=== PATIENT | male | born 1965 | race Caucasian/White ===

== ENCOUNTER 2018-01-28 06:28 | Observation (INO) | payer OTHER ==
[~2018-01-28] VITALS: Ht 177.8 cm; Wt 75.0 kg
[2018-01-28 06:32] VITALS: BP 166/91; PULSE 101; RESP 16; TEMP 98.3; O2SAT 99
[2018-01-28 06:55] LABS: AUTOMATED NEUTROPHIL # 6.8 TH/MM3 (1.8-7.7); BASOPHIL # 0.1 TH/MM3 (0-0.2); BASOPHIL % 1.3 % (0.0-2.0); EOSINOPHIL # 0.2 TH/MM3 (0-0.4); EOSINOPHIL % 2.3 % (0.0-4.0); HEMATOCRIT 44.9 % (39.0-51.0); HEMOGLOBIN 15.7 GM/DL (13.0-17.0); LYMPH % 25.4 % (9.0-44.0); LYMPHOCYTE # 2.6 TH/MM3 (1.0-4.8); MEAN CELL VOLUME 94.2 FL (80.0-100.0); MEAN CORPUSCULAR HEMOGLOBIN 32.9 PG (27.0-34.0); MEAN PLATELET VOLUME 7.1 FL (7.0-11.0); MONO % 5.1 % (0.0-8.0); MONOCYTE # 0.5 TH/MM3 (0-0.9); NEUT % 65.9 % (16.0-70.0); PLATELET COUNT 360 TH/MM3 (150-450); RED BLOOD COUNT 4.76 MIL/MM3 (4.50-5.90); WHITE BLOOD COUNT 10.3 TH/MM3 (4.0-11.0)
[2018-01-28 07:11] LABS: BICARBONATE 28.8 MEQ/L (21.0-32.0); BLOOD UREA NITROGEN 8 MG/DL (7-18); CALCIUM 8.8 MG/DL (8.5-10.1); CHLORIDE 104 MEQ/L (98-107); CREATININE 0.86 MG/DL (0.60-1.30); GLOMERULAR FILTRATION RATE 93 ML/MIN (>89); GLUCOSE,RANDOM 106 MG/DL (74-106); SODIUM (NA) 140 MEQ/L (136-145)
[2018-01-28 07:14] LABS: TROPONIN I LESS THAN 0.02 NG/ML (0.02-0.05)
--- NOTE | 2018-01-28 08:04 | RADRPT ---
EXAM DATE/TIME: 01/28/2018 07:50 [place] COMPARISON: No previous studies available for comparison. INDICATIONS : Chest pain. Patient complains of chest pressure. MEDICAL HISTORY : None. SURGICAL HISTORY : None. ENCOUNTER: Initial ACUITY: 2 days PAIN SCORE: 5/10 LOCATION: Bilateral chest FINDINGS: PA and lateral views of the chest demonstrate the lungs to be symmetrically aerated without evidence of mass, infiltrate or effusion. The cardiomediastinal contours are unremarkable. Osseous structure s are intact. CONCLUSION: 1. No acute cardiopulmonary disease. Terry Larose MD on January 28, 2018 at 8:01 Board Certified Radiologist. This report was verified electronically.
[2018-01-28 08:29] VITALS: BP 176/93; PULSE 83; RESP 16; O2SAT 99
--- NOTE | 2018-01-28 08:37 | PD ---
HPI Chief Complaint: Chest Pain Time Seen by Provider: 08:27 Travel History International Travel<30 days: No Contact w/Intl Traveler<30days: No Traveled to known affect area: No History of Present Illness HPI Patient is a 52-year-old male who comes in complaining of left-sided chest pain. He describes the pain as a pressure, and says it radiates down his left arm. He says it started this morning while he was driving to work. He says it has been coming and going since then. He denies any medical problems, but says he has not seen a primary care physician in a while. He is a smoker. He denies shortness of breath, nausea or vomiting. He has not taken anything for his pain. He does have family history of heart disease in his father and brother. Severity is mild to moderate. PFSH Past Medical History Medical History: Denies Significant Hx Diminished Hearing: No Tetanus Vaccination: Unknown Influenza Vaccination: No Past Surgical History Oral Surgery: Yes Social History Alcohol Use: Yes (2 beers a day) Tobacco Use: Yes Substance Use: No Allergies-Medications (Allergen,Severity, Reaction): Coded Allergies: No Known Allergies (Unverified , 01/28/18) Reported Meds & Prescriptions Reported Meds & Active Scripts Active No Active Prescriptions or Reported Medications Review of Systems Except as stated in HPI: all other systems reviewed are Neg General / Constitutional: No: Fever, Chills Eyes: No: Blurred Vision HENT: No: Headaches, Lightheadedness Cardiovascular: Positive: Chest Pain or Discomfort Respiratory: No: Shortness of Breath Gastrointestinal: No: Nausea, Vomiting Genitourinary: No: Dysuria Musculoskeletal: No: Myalgias, Edema Skin: No Rash, No Change in Pigmentation Neurologic: No: Weakness, Dizziness Physical Exam Narrative GENERAL: Awake and alert, no acute distress. SKIN: Focused skin assessment warm/dry. No wounds or signs of infection. HEAD: Atraumatic. Normocephalic. EYES: Pupils equal and round. No scleral icterus. Extraocular movements intact. NECK: Trachea midline. No JVD. CARDIOVASCULAR: Regular rate and rhythm. No murmur appreciated. RESPIRATORY: No accessory muscle use. Clear to auscultation. Breath sounds equal bilaterally. GASTROINTESTINAL: Abdomen soft, non-tender, nondistended. MUSCULOSKELETAL: No obvious deformities. No clubbing. No cyanosis. No edema. NEUROLOGICAL: Awake and alert. No obvious cranial nerve deficits. Motor grossly within normal limits. Normal speech. PSYCHIATRIC: Appropriate mood and affect; insight and judgment normal. Data Data Last Documented VS Vital Signs Date Time Temp Pulse Resp B/P (MAP) Pulse Ox O2 Delivery O2 Flow Rate FiO2 01/28/18 08:29 83 16 176/93 (120) 99 Room Air 01/28/18 06:32 98.3 Orders Orders Electrocardiogram (01/28/18 06:36) Complete Blood Count With Diff (01/28/18 06:36) Basic Metabolic Panel (Bmp) (01/28/18 06:36) Ckmb (Isoenzyme) Profile (01/28/18 06:36) Troponin I (01/28/18 06:36) Iv Access Insert/Monitor (01/28/18 06:36) Ecg Monitoring (01/28/18 06:36) Oxygen Administration (01/28/18 06:36) Oximetry (01/28/18 06:36) Chest, Pa & Lat (01/28/18 06:36) Admit Order (Ed Use Only) (01/28/18 ) Aspirin Chew (Aspirin Chew) (01/28/18 08:45) Labs Laboratory Tests Test 01/28/18 06:46 White Blood Count 10.3 TH/MM3 Red Blood Count 4.76 MIL/MM3 Hemoglobin 15.7 GM/DL Hematocrit 44.9 % Mean Corpuscular Volume 94.2 FL Mean Corpuscular Hemoglobin 32.9 PG Mean Corpuscular Hemoglobin Concent 35.0 % Red Cell Distribution Width 14.0 % Platelet Count 360 TH/MM3 Mean Platelet Volume 7.1 FL Neutrophils (%) (Auto) 65.9 % Lymphocytes (%) (Auto) 25.4 % Monocytes (%) (Auto) 5.1 % Eosinophils (%) (Auto) 2.3 % Basophils (%) (Auto) 1.3 % Neutrophils # (Auto) 6.8 TH/MM3 Lymphocytes # (Auto) 2.6 TH/MM3 Monocytes # (Auto) 0.5 TH/MM3 Eosinophils # (Auto) 0.2 TH/MM3 Basophils # (Auto) 0.1 TH/MM3 CBC Comment DIFF FINAL Differential Comment Blood Urea Nitrogen 8 MG/DL Creatinine 0.86 MG/DL Random Glucose 106 MG/DL Calcium Level 8.8 MG/DL Sodium Level 140 MEQ/L Potassium Level 3.9 MEQ/L Chloride Level 104 MEQ/L Carbon Dioxide Level 28.8 MEQ/L Anion Gap 7 MEQ/L Estimat Glomerular Filtration Rate 93 ML/MIN Total Creatine Kinase 75 U/L Troponin I LESS THAN 0.02 NG/ML MDM Medical Decision Making Medical Screen Exam Complete: Yes Emergency Medical Condition: Yes Interpretation(s) ECG shows normal sinus rhythm at 83, no ST elevation or depression, normal intervals Differential Diagnosis ACS versus an STEMI versus STEMI Narrative Course Patient is a 52-year-old male who comes in complaining of chest pain radiating down his left arm. Exam shows no acute abnormalities. IV established, labs sent. Patient connected to the court recording monitor. Given aspirin. Labs show no acute abnormalities, troponin is within normal limits. Chest x-ray shows no acute abnormalities. Based on risk factors, patient will be placed in chest pain center for further management. Last 24 hours Impressions Chest X-Ray 01/28/18 0636 Signed Impressions: Service Date/Time: Sunday, January 28, 2018 07:50 - CONCLUSION: 1. No acute cardiopulmonary disease. Terry Larose MD Diagnosis Primary Impression: Chest pain Qualified Codes: R07.9 - Chest pain, unspecified Admitting Information Admitting Physician Requests: Observation Scripts No Active Prescriptions or Reported Meds Teresa Douglas MD Jan 28, 2018 08:37
[2018-01-28] MEDS ORDERED: ASPIRIN 81 MG CHEW TAB CHEW ONE (08:45)
[2018-01-28 10:13] VITALS: BP 131/80; PULSE 76; RESP 16; O2SAT 97
--- NOTE | 2018-01-28 10:48 | HHI.HP ---
HPI Primary Care Physician No Primary Care Physician Chief Complaint Chest pain History of Present Illness This is a 52-year-old male presents to ED via private vehicle with a complaint of discomfort in his chest. States that he developed a sharp/throbbing discomfort in the center of his chest while driving to work the last a couple seconds. However it has recurred several more times since. No associated shortness of breath, nausea, or diaphoresis. States this is happened in the past. States 2 years ago it occurred and he went to [facility] and had labs and EKGs and was discharged. No stress testing. He cannot recall ever having a stress test or heart catheterization. Denies recent illness. Denies fevers or chills. He is found nothing to bring on the discomfort. There is family history of CAD. States his brother had an DC at age 49 and his father had late onset coronary disease in his 70s. Patient is a cigarette smoker. Review of Systems General: Patient denies fevers, chills, and recent travel. HEENT: Patient denies headache, sore throat, difficulty swallowing. Cardiovascular: Has the chest discomfort as mentioned above. Denies sensation of heart beating rapidly or irregularly. No syncope. Denies diaphoresis. Respiratory: Denies shortness of breath or inspirational chest discomfort. Denies coughing wheezing or hemoptysis. GI: Patient denies nausea, vomiting, diarrhea, abdominal pain, bloody stools. Musculoskeletal: Patient denies joint pain or edema. Denies calf pain or edema. Neurovascular: Patient denies numbness, tingling, weakness in extremities. Denies headache. Endocrine: Denies polyuria and polydipsia. Hematologic: Denies easy bruising. Skin: Denies rash or itching. Past Family Social History Allergies: Coded Allergies: No Known Allergies (Unverified , 01/28/18) Past Medical History Tobacco abuse. Denies hypertension, hyperlipidemia, diabetes, and known CAD. Past Surgical History Oral surgery. Reported Medications Reported Meds & Active Scripts Active No Active Prescriptions or Reported Medications Family History His brother had an DC with 3 stents at age 49. His father late onset coronary disease in his 70s. Social History Smokes 1 pack a series daily for 30 years. Has on average 2 beers per day. Denies illicit drugs. Lives with his . He is retired . Physical Exam Vital Signs Vital Signs Date Time Temp Pulse Resp B/P (MAP) Pulse Ox O2 Delivery O2 Flow Rate FiO2 01/28/18 10:13 76 16 131/80 (97) 97 Room Air 01/28/18 08:29 83 16 176/93 (120) 99 Room Air 01/28/18 06:32 98.3 101 16 166/91 (116) 99 Physical Exam GENERAL: This is a well-nourished, well-developed patient, in no apparent distress. Patient speaks in clear complete sentences. Patient is pleasant. HEENT: Head is atraumatic and normocephalic. Neck is supple without lymphadenopathy and trachea is midline. No JVD or carotid bruits. CARDIOVASCULAR: Regular rate and rhythm without murmurs, gallops, or rubs. RESPIRATORY: Clear to auscultation. Breath sounds equal bilaterally. No wheezes , rales, or rhonchi. Chest wall is tender along the inferior aspect of the sternum almost to the xiphoid process. This is the discomfort he has been having. No use of accessory muscles. GASTROINTESTINAL: Abdomen is nontender, nondistended. Abdomen soft. No obvious pulsatile mass or bruit. No CVA tenderness. Strong femoral pulses bilaterally. Normal bowel sounds in all quadrants. MUSCULOSKELETAL: Patient is moving upper and lower extremities freely. No calf tenderness or edema, no Homans sign. Strong pulses in upper and lower extremities. NEUROLOGICAL: Patient is alert and oriented. Cranial nerves 2-12 are grossly intact. No focal deficits and speech is clear. SKIN: No rash and turgor is normal. Laboratory Laboratory Tests Test 01/28/18 06:46 01/28/18 10:00 White Blood Count 10.3 Red Blood Count 4.76 Hemoglobin 15.7 Hematocrit 44.9 Mean Corpuscular Volume 94.2 Mean Corpuscular Hemoglobin 32.9 Mean Corpuscular Hemoglobin Concent 35.0 Red Cell Distribution Width 14.0 Platelet Count 360 Mean Platelet Volume 7.1 Neutrophils (%) (Auto) 65.9 Lymphocytes (%) (Auto) 25.4 Monocytes (%) (Auto) 5.1 Eosinophils (%) (Auto) 2.3 Basophils (%) (Auto) 1.3 Neutrophils # (Auto) 6.8 Lymphocytes # (Auto) 2.6 Monocytes # (Auto) 0.5 Eosinophils # (Auto) 0.2 Basophils # (Auto) 0.1 CBC Comment DIFF FINAL Differential Comment Blood Urea Nitrogen 8 Creatinine 0.86 Random Glucose 106 Calcium Level 8.8 Sodium Level 140 Potassium Level 3.9 Chloride Level 104 Carbon Dioxide Level 28.8 Anion Gap 7 Estimat Glomerular Filtration Rate 93 Total Creatine Kinase 75 Troponin I LESS THAN 0.02 Result Diagram: 01/28/1846 01/28/18 0646 Imaging Last 48 hours Impressions Chest X-Ray 01/28/18 0636 Signed Impressions: Service Date/Time: Sunday, January 28, 2018 07:50 - CONCLUSION: 1. No acute cardiopulmonary disease. Terry Larose MD Course First 2 EKGs are sinus rhythm without significant ST segment depressions or elevations. Caprini VTE Risk Assessment Caprini VTE Risk Assessment: No/Low Risk (score <= 1) Caprini Risk Assessment Model Point Value = 1 Point Value = 2 Point Value = 3 Point Value = 5 Age 41-60 Minor surgery BMI > 25 kg/m2 Swollen legs Varicose veins or History of unexplained or recurrent spontaneous Oral contraceptives or hormone replacement Sepsis (< 1 month) Serious lung disease, including pneumonia (< 1 month) Abnormal pulmonary function Acute myocardial infarction Congestive heart failure (< 1 month) History of inflammatory bowel disease Medical patient at bed rest Age 61-74 Arthroscopic surgery Major open surgery (> 45 min) Laparoscopic surgery (> 45 min) Malignancy Confined to bed (> 72 hours) Immobilizing plaster cast Central venous access Age >= 75 History of VTE Family history of VTE Factor V Leiden Prothrombin [id number] Lupus anticoagulant Anticardiolipin antibodies Elevated serum homocysteine Heparin-induced thrombocytopenia Other congenital or acquired thrombophilia Stroke (< 1 month) Elective arthroplasty Hip, pelvis, or leg fracture Acute spinal cord injury (< 1 month) Prophylaxis Regimen Total Risk Factor Score Risk Level Prophylaxis Regimen 0-1 Low Early ambulation 2 Moderate Order ONE of the following: *Sequential Compression Device (SCD) *Heparin 5000 units SQ BID 3-4 Higher Order ONE of the following medications: *Heparin 5000 units SQ TID *Enoxaparin/Lovenox 40 mg SQ daily (WT < 150 kg, CrCl > 30 mL/min) *Enoxaparin/Lovenox 30 mg SQ daily (WT < 150 kg, CrCl > 10-29 mL/min) *Enoxaparin/Lovenox 30 mg SQ BID (WT < 150 kg, CrCl > 30 mL/min) AND/OR *Sequential Compression Device (SCD) 5 or more Highest Order ONE of the following medications: *Heparin 5000 units SQ TID (Preferred with Epidurals) *Enoxaparin/Lovenox 40 mg SQ daily (WT < 150 kg, CrCl > 30 mL/min) *Enoxaparin/Lovenox 30 mg SQ daily (WT < 150 kg, CrCl > 10-29 mL/min) *Enoxaparin/Lovenox 30 mg SQ BID (WT < 150 kg, CrCl > 30 mL/min) AND *Sequential Compression Device (SCD) Assessment and Plan Assessment and Plan * Chest pain: Patient's symptoms are atypical. He will have serial cardiac enzymes and EKGs for ruling out purposes and be seen by Dr. Ozzy Penn of cardiology in the Chest pain center. Patient likely have a Arnel protocol ETT if he rules out. Patient to be discharged home if the stress test is nonischemic with instructions to follow-up with PCP. Return to ED for interval issues. * Tobacco abuse: Patient has been counseled on importance of smoking cessation. Patient is stable at this time. He is agreeable to this plan. Zaire Everett Jan 28, 2018 10:48
[2018-01-28 10:53] LABS: TROPONIN I LESS THAN 0.02 NG/ML (0.02-0.05)
--- NOTE | 2018-01-28 11:48 | HHI.DCPOC ---
Discharge Care Plan Diagnosis: (1) Chest pain (2) Tobacco abuse Goals to Promote Your Health * To prevent worsening of your condition and complications * To maintain your health at the optimal level Directions to Meet Your Goals Take your medications as prescribed Follow your dietary instruction Follow activity as directed Keep your appointments as scheduled Take your immunizations and boosters as scheduled If your symptoms worsen call your PCP, if no PCP go to Urgent Care Center or Emergency Room Smoking is Dangerous to Your Health. Avoid second hand smoke Call the 24-hour hour crisis hotline for domestic abuse at Zaire Everett Jan 28, 2018 11:48
--- NOTE | 2018-01-28 11:57 | EKG ---
Date Performed: 01/28/2018 Time Performed: 06:44:44 PTAGE: 52 years EKG: Sinus rhythm POSSIBLE LEFT ATRIAL ENLARGEMENT BORDERLINE ECG NO PREVIOUS TRACING DOCTOR: Ozzy Penn Interpretating Date/Time 01/28/2018 11:56:05
--- NOTE | 2018-01-28 12:00 | EKG ---
Date Performed: 01/28/2018 Time Performed: 10:18:35 PTAGE: 52 years EKG: Sinus rhythm POSSIBLE LEFT ATRIAL ENLARGEMENT BORDERLINE ECG PREVIOUS TRACING : 01/28/2018 06.44 Since previous tracing, no significant change noted DOCTOR: Ozzy Penn Interpretating Date/Time 01/28/2018 11:59:29
--- NOTE | 2018-01-28 16:52 | TR ---
Date Performed: 01/28/2018 Time Performed: 11:10:33 DOCTOR: Ozzy Penn DRUG LIST: CLINICAL HISTORY: REASON FOR TEST: REASON FOR ENDING: OBSERVATION: CONCLUSION: GAVIN PROTOCOL. NO CP. TEST STOPPED AFTER EXCEEDING GOAL HR SECONDARY TO SOB AND LEG FATIGUE.Maximum AB=305 % Max HR Achieved=95.0% Maximum RH=196/82 Total Exercise Time=4:30 COMMENTS: Patient exercised using the Gavin protocol. No electrocardiographic changes were seen to suggest ischemia. Hemodynamic response to exercise was normal. No significant arrhythmia was prese nt.
== END 2018-01-28 14:11 | disposition home or self-care (01) ==
LOC: NEPE 06:28 → NEDA 08:34 → NEPFCDU 11:14
PROVIDERS: ADMIT Internal Medicine Cardiovascular Disease; ATTEND Internal Medicine Cardiovascular Disease
DX: R07.89 Other chest pain (principal); F17.210 Nicotine dependence, cigarettes, uncomplicated; Z82.49 Family history of ischemic heart disease and other diseases of the circulatory system
CPT/HCPCS: 71046; 80048; 82550; 84484; 85025; 93005; 93017; 99285; G0378